=== PATIENT | female | born 1990 ===

== ENCOUNTER 2016-11-30 03:49 | Emergency (ER) | payer SELFPAY ==
[2016-11-30 03:56] VITALS: BP 121/80
--- NOTE | 2016-11-30 04:45 | EDM.PDOC ---
ED HPI Trauma - General Chief Complaint: Upper Extremity Injury/Pain Stated Complaint: R WRIST PAIN Time Seen by Provider: 11/30/16 04:00 Source: Reports: Patient History Limitations: Reports: No limitations - History of Present Illness INITIAL COMMENTS - FREE TEXT/NARRATIVE: c/o pain to right wrist since Friday. Unable to sleep at night. Was seen at [facility] on Friday and told was negative, offered a splint at that time but wrist felt worse with splint on. Occurred When: just prior to arrival Occurred Where: other Method of Injury: direct blow Severity: moderate Allergies/ADRs: Allergies Sulfa (Sulfonamide Antibiotics) Allergy (Verified 11/30/16 03:56) Swelling Home Medications: Ambulatory Orders . [Unable to Verify Home Med List] 11/30/16 [Confirmed 11/30/16] Past Medical History Other Gastrointestinal History: C dif Genitourinary History: Reports: Other (see below) Other Genitourinary History: "kidney surgeries", bladder surgery for reflux x2 Psychiatric History: Reports: Anxiety - Infectious Disease History Infectious Disease History: Reports: C-difficile - Past Surgical History GI Surgical History: Reports: Colonoscopy Social & Family History - Tobacco Use Smoking Status *Q: Never Smoker Second Hand Smoke Exposure: No - Recreational Drug Use Recreational Drug Use: No Review of Systems - Review of Systems Review Of Systems: See Below Constitutional: Reports: no symptoms Mouth/Throat: Reports: no symptoms Respiratory: Reports: No Symptoms Cardiovascular: Reports: no symptoms Musculoskeletal: Reports: joint pain (right wrist and hand) Skin: Reports: bruising. Denies: wound Neurological: Reports: No Symptoms Trauma Exam - Physical Exam Exam: See Below Exam Limited By: No limitations General Appearance: Reports: alert, mild distress, thin Head: Reports: atraumatic Ears: Reports: normal external exam Nose: Reports: normal inspection Throat/Mouth: Reports: Normal inspection Neck: Reports: non-tender, full range of motion, normal alignment Respiratory Exam: Reports: no respiratory distress, lungs clear Cardiovascular: Reports: normal peripheral pulses Back: Reports: full range of motion Extremities: Reports: bony-point tenderness, pain with movement, tenderness ( right wrist tender with movment, bruising distal MCP no gross deformity. pain worse with flexion ). Denies: no evidence of injury Neurologic: Reports: oriented x 3 Skin: Reports: Warm/dry, Other (brow bruising distal MCP) - [place] Coma Score Best Eye Response (A[place]ora): (4) open spontaneously Best Verbal Response ([place]): (5) oriented Best Motor Response ([place]): (6) obeys commands ED TRAUMA EXTREMITY PROCEDURES - Splinting Right Upper Extremity Splint site: right wrist and hand Pre-procedure NV status: normal Post-procedure NV status: normal Splint material: metal Splint design: other Applied & form fitted by: provider Course - Vital Signs Last Recorded V/S: Last Vital Signs Temp 97.6 F 11/30/16 03:52 Pulse 94 11/30/16 03:52 Resp 18 11/30/16 03:52 BP 121/80 11/30/16 03:52 Pulse Ox 100 11/30/16 03:52 - Radiology Interpretation Free Text/Narrative:: xray right wrist and hand negative. Findings reviewed with patient. also educated on need to keep extremity elevated. Number of times patient observed lying on bed with extremity draped over bed and near floor. Departure - Departure Time of Disposition: 04:38 Disposition: Home, Self-Care 01 Condition: good Clinical Impression: Right hand pain Instructions: Cast or Splint Care, [id number] Forms: ED Department Discharge Additional Instructions: rest ice elevation splint for 24 hours then as needed alternate tylenol and ibuprofen follow up with primary care one week for re check
== END 2016-11-30 04:43 | disposition home or self-care (01) ==
LOC: DL.ED 03:49
DX: M79.641 Pain in right hand (principal); F41.9 Anxiety disorder, unspecified; Z88.2 Allergy status to sulfonamides
CPT/HCPCS: 29125; 73130-RT; 99282; 99283